=== PATIENT | female | born 1995 | race Caucasian/White ===

== ENCOUNTER 2024-05-21 15:22 | Observation (INO) | payer OTHER, SELFPAY ==
[2024-05-21 15:35] VITALS: BP 131/66; BMI 27.1
[2024-05-21] MEDS: LR 1000 IV (15:48)
[2024-05-21 16:01] LABS: % Basophils 0.5 % (0-2); % Eosinophils 0.1 % (0-6); % Immature Granulocytes 1.1 % (0-0.5); % Lymphocytes 26.6 % (20.5-51.1); % Monocytes 10.2 % (1.7-9.3); % Neutrophils 61.5 % (42.2-75.2); Absolute Basophils 0.1 10^3/uL (0-0.2); Absolute Immature Granulocytes 0.1 10^3/uL (0-0.05); Absolute Lymphocytes 2.6 10^3/uL (1.2-3.4); Hematocrit 30.5 % (37.0-47.0); Hemoglobin 10.2 g/dL (12.0-16.0); Mean Corp Hgb Conc. 33.4 g/dL (33.0-37.0); Mean Corpuscular Hgb 26.6 pg (27.0-31.0); Mean Corpuscular Volume 79.4 fL (81.0-99.0); Mean Platelet Volume 10.7 fL (7.4-10.4); Nucleated Red Blood Cells % 0 %; Platelet Count 193 10^3/uL (130-400); Red Blood Cell Count 3.84 10^6/uL (4.20-5.40); Red Cell Dist. Width 14.5 % (11.5-14.5); White Blood Cell Count 9.7 10^3/uL (4.8-10.8)
[2024-05-21 16:19] LABS: ALT (SGPT) 22 U/L (0-35); AST (SGOT) 34 U/L (14-36); Albumin 3.6 g/dl (3.5-5.0); Alkaline Phosphatase 146 U/L (38-126); Blood Urea Nitrogen 9 mg/dl (7-17); Calcium 9.1 mg/dl (8.4-10.2); Carbon Dioxide 19 mmol/L (22-30); Chloride 106 mmol/L (98-107); Estimated Creatinine Clearance > 125 ml/min; Glucose 84 mg/dl (70-99); Potassium 4.1 mmol/L (3.5-5.1); Sodium 136 mmol/L (135-145); Total Bilirubin 0.8 mg/dl (0.2-1.3); Total Protein 6.4 g/dl (6.3-8.2); eGFR > 60.00
[2024-05-21 16:25] LABS: Urine Albumin Negative (Neg - Trace); Urine Bilirubin Negative (Negative); Urine Character Clear (Clear); Urine Color Yellow; Urine Glucose Negative (Negative); Urine Ketone Negative (Negative); Urine Leukocyte Trace (Negative); Urine Nitrite Negative (Negative); Urine Occult Blood Negative (Negative); Urine Urobilinogen Negative (Neg - 1+)
[2024-05-21] MEDS: TYLENOL 650 MG PO (16:44)
[2024-05-21 16:51] LABS: Urine Bacteria Few (Negative); Urine Red Blood Cell 0-2 /HPF (0-2)
== END 2024-05-21 18:12 | disposition home or self-care (01) ==
LOC: LDRP 15:22
PROVIDERS: ADMITTING PHYSICIAN Obstetrics & Gynecology
DX: O99.513 Diseases of the respiratory system complicating pregnancy, third trimester (principal); R50.9 Fever, unspecified; J06.9 Acute upper respiratory infection, unspecified; Z3A.39 39 weeks gestation of pregnancy; R09.81 Nasal congestion; Z91.012 Allergy to eggs
CPT/HCPCS: 36415; 80053; 81003; 81015; 85025; 86850; 86900; 86901; 87086; G0378

== ENCOUNTER 2024-05-29 13:19 | Inpatient (IN) | payer OTHER, SELFPAY ==
[2024-05-29 13:54] VITALS: BP 130/70; BMI 27.1
[2024-05-29 15:07] LABS: % Basophils 0.4 % (0-2); % Eosinophils 0.2 % (0-6); % Immature Granulocytes 0.8 % (0-0.5); % Lymphocytes 17.3 % (20.5-51.1); % Monocytes 5.1 % (1.7-9.3); % Neutrophils 76.2 % (42.2-75.2); Absolute Immature Granulocytes 0.1 10^3/uL (0-0.05); Absolute Lymphocytes 1.8 10^3/uL (1.2-3.4); Absolute Monocytes 0.5 10^3/uL (0.1-0.6); Absolute Neutrophils 8.1 10^3/uL (1.4-6.5); Hematocrit 33.3 % (37.0-47.0); Hemoglobin 11.2 g/dL (12.0-16.0); Mean Corp Hgb Conc. 33.6 g/dL (33.0-37.0); Mean Corpuscular Hgb 26.4 pg (27.0-31.0); Mean Corpuscular Volume 78.5 fL (81.0-99.0); Mean Platelet Volume 11.2 fL (7.4-10.4); Nucleated Red Blood Cells % 0 %; Platelet Count 265 10^3/uL (130-400); Red Blood Cell Count 4.24 10^6/uL (4.20-5.40); Red Cell Dist. Width 14.6 % (11.5-14.5); White Blood Cell Count 10.6 10^3/uL (4.8-10.8)
[2024-05-30] MEDS: PITOCIN 30 UNITS/NSS 500 ML IV ×2 (00:26→07:47)
[2024-05-30] MEDS: LR 1000 IV (00:28)
[2024-05-30] MEDS: XYLOCAINE-MPF 1% VIAL 10 ML INFIL (07:50)
[2024-05-30] MEDS: MOTRIN 600 MG PO (08:49)
[2024-05-30] MEDS: PRENATAL PLUS 1 TABLET PO (08:49)
[2024-05-31 05:29] LABS: Hemoglobin 10.7 g/dL (12.0-16.0)
[2024-05-31 11:52] LABS: Syphilis/T. pallidum Ab Reflex Negative (Negative)
== END 2024-05-31 15:49 | disposition home or self-care (01) | DRG 807 ==
LOC: LDRP 13:19
PROVIDERS: Student in an Organized Health Care Education/Training Program; ADMITTING PHYSICIAN Obstetrics & Gynecology; ATTENDING PHYSICIAN Obstetrics & Gynecology
PROC: 0HQ9XZZ Repair Perineum Skin, External Approach (ICD-10-PCS; 2024-05-30)
PROC: 10907ZC Drainage of Amniotic Fluid, Therapeutic from Products of Conception, Via Natural or Artificial Opening (ICD-10-PCS; 2024-05-30)
PROC: 10E0XZZ Delivery of Products of Conception, External Approach (ICD-10-PCS; 2024-05-30)
DX: O70.0 First degree perineal laceration during delivery (principal); Z37.0 Single live birth; O76 Abnormality in fetal heart rate and rhythm complicating labor and delivery; Z3A.40 40 weeks gestation of pregnancy
CPT/HCPCS: 85014; 85018; 85025; 86780; 86850; 86900; 86901